=== PATIENT | male | born 1965 | race Caucasian/White ===

== ENCOUNTER 2020-08-05 12:45 | Inpatient (IN) | payer MEDICARE, MEDICAID ==
[~2020-08-05] VITALS: Ht 160 cm; Wt 127.3 kg
--- NOTE | 2020-08-05 13:12 | NUR ---
Dr. Washington at bedside.
--- NOTE | 2020-08-05 13:32 | NUR ---
Lizbet bucio in [facility] - 08/05/20 at 1334 by ERICA sheryl graf in law [phone] emilia luna [phone]
[2020-08-05 13:34] LABS: BASOPHILS % (AUTO) 0.5 % (0-1); EOSINOPHILS % (AUTO) 0 % (0-6); HEMATOCRIT 46.7 % (42.0-52.0); HEMOGLOBIN 15.6 g/dl (14.0-17.9); LYMPHOCYTES # (AUTO) 0.7 X10'3 (1.1-4.8); LYMPHOCYTES % (AUTO) 11.1 % (21-51); MEAN CORPUSCULAR HEMOGLOBIN 35.4 PG (27.0-31.0); MEAN CORPUSCULAR HGB CONC 33.4 g/dL (33.0-36.5); MEAN CORPUSCULAR VOLUME 105.9 FL (78-98); MEAN PLATELET VOLUME 8.6 FL (7.4-10.4); MONOCYTES # (AUTO) 0.5 X10'3 (0-0.9); MONOCYTES % (AUTO) 7.8 % (2-12); NEUTROPHILS % (AUTO) 80.6 % (42-75); PLATELET COUNT 180 X10'3 (140-440); RED BLOOD COUNT 4.41 X10'6 (4.70-6.10); RED CELL DISTRIBUTION WIDTH 15.3 % (11.5-14.5); WHITE BLOOD COUNT 6.2 X10'3 (4.5-11.0)
[2020-08-05] MEDS ORDERED: acetaminophen 325mg rectal suppository RC ONE ×2 (13:45→13:55)
[2020-08-05 13:46] LABS: PARTIAL THROMBOPLASTIN TIME 30 SECONDS (22-32)
[2020-08-05 13:47] LABS: ALANINE AMINOTRANSFERASE 77 U/L (12-78); ALBUMIN 2.9 G/DL (3.4-5.0); ALBUMIN/GLOBULIN RATIO 0.5 (1.1-1.5); ALKALINE PHOSPHATASE 70 IU/L (46-116); ANION GAP 6 (8-16); ASPARTATE AMINO TRANSFERASE 149 U/L (10-37); BILIRUBIN,TOTAL 0.7 MG/DL (0.1-1.0); BLOOD UREA NITROGEN 42 MG/DL (7-18); BUN/CREATININE RATIO 17.6 (5.4-32.0); CALCIUM 8.4 MG/DL (8.5-10.1); CHLORIDE 100 MMOL/L (99-107); CREATININE 2.38 MG/DL (0.60-1.10); GLUCOSE 119 MG/DL (70-104); POTASSIUM 4.4 MMOL/L (3.5-5.1); SODIUM 138 MMOL/L (135-145); TOTAL CARBON DIOXIDE 31.9 MMOL/L (24-32); TOTAL PROTEIN 8.3 G/DL (6.4-8.2); eGFR 29 ML/MIN
[2020-08-05] MEDS ORDERED: normal saline 250ml IV soln 250 ML IV ONE (14:10)
--- NOTE | 2020-08-05 14:11 | NUR ---
Dr. Washington notified of fever of 103.3, AR tylenol ordered and administered
[2020-08-05 15:01] LABS: C-REACTIVE PROTEIN 16.18 MG/DL (0.0-0.5); LACTATE DEHYDROGENASE 642 U/L (85-227)
[2020-08-05] MEDS: ipratropium/albuterol 3ml nebule NEB PRN (15:17)
[2020-08-05] MEDS ORDERED: dexamethasone 4mg tablet PO ONE (15:30)
[2020-08-05 15:36] LABS: ABG BASE EXCESS 1.8 mmol/L (-2.0-2.0); ABG HCO3 27.7 mmol/L (22.0-26.0); ABG OXYGEN SATURATION 95.1 % (94-97); ABG PCO2 (T) 48.5 mmHg (35.0-48.0); ABG PO2 (T) 76.5 mmHg (75.0-100.0); ALLEN'S TEST POSITIVE; FCOHb 0.8 % (0.0-3.9); FLOW 10 L/min; FMetHb 0.2 % (0.0-1.5); FO2Hb 94.1 % (94-97); TOTAL HEMOGLOBIN 14.4 G/dl (14.0-18.0)
--- NOTE | 2020-08-05 15:45 | NUR ---
Pt with ALOC, not following commands well. Dr. Aggarwal aware. Dexamethasone converted to IV per MD order.
[2020-08-05] MEDS ORDERED: dexamethasone sod phosphate 10mg/ml inj IV ONE (15:50)
[2020-08-05] MEDS ORDERED: magnesium hydroxide 30ml (MOM) UD suspension PO PRN (17:00)
[2020-08-05] MEDS ORDERED: metoclopramide 5 mg/ml inj IV PRN (17:00)
[2020-08-05] MEDS ORDERED: mag hydrox/Alum hydrox/simeth 30ml oral suspension PO PRN (17:00)
[2020-08-05] MEDS ORDERED: magnesium 4gm in 100ml NS 100 ML IV PRN (17:00)
[2020-08-05] MEDS ORDERED: magnesium Cl slow-release 64mg tablet PO PRN (17:00)
[2020-08-05] MEDS ORDERED: ondansetron/PF 4mg/2ml inj IV PRN (17:00)
[2020-08-05] MEDS ORDERED: HYDROcodone/acetaminophen 10/325mg tab PO PRN (17:00)
[2020-08-05] MEDS ORDERED: potassium CL 10mEq/100ml bag 100 ML IV PRN ×2 (17:00)
[2020-08-05] MEDS ORDERED: magnesium 2GM in 50ml NS 50 ML IV PRN (17:00)
[2020-08-05] MEDS ORDERED: potassium Cl 20 mEq SR tablet PO PRN ×2 (17:00)
[2020-08-05] MEDS ORDERED: ALBUTEROL INHALER 1 PUFF/90 MCG INHALER IH PRN (17:00)
[2020-08-05] MEDS ORDERED: acetaminophen 325mg tablet PO PRN ×2 (17:00)
[2020-08-05] MEDS ORDERED: bisacodyl 10mg suppository rectal RC PRN (17:00)
[2020-08-05] MEDS ORDERED: HYDROcodone/acetaminophen 5mg/325mg tablet PO PRN (17:00)
[2020-08-05] MEDS ORDERED: ATOR10TA70 PO (17:37)
[2020-08-05] MEDS: normal saline 1000ml 1,000 ML IV SCH (17:56)
[2020-08-05] MEDS: K and/or MAG REPLACEMENT MC SCH (20:09)
[2020-08-05] MEDS ORDERED: temazepam 15mg capsule PO PRN (21:00)
[2020-08-05 23:14] VITALS: BP 108/67
[2020-08-05 23:25] LABS: D-DIMER 1.56 MG/L FEU (0-0.50)
[2020-08-06] MEDS: normal saline 1000ml 1,000 ML IV SCH (04:00)
[2020-08-06 06:00] VITALS: BP 107/66
[2020-08-06 06:57] LABS: D-DIMER 2.12 MG/L FEU (0-0.50)
[2020-08-06 07:06] LABS: BASOPHILS % (AUTO) 0.3 % (0-1); EOSINOPHILS % (AUTO) 0 % (0-6); HEMATOCRIT 44.7 % (42.0-52.0); HEMOGLOBIN 15.1 g/dl (14.0-17.9); LYMPHOCYTES # (AUTO) 0.7 X10'3 (1.1-4.8); LYMPHOCYTES % (AUTO) 7.2 % (21-51); MEAN CORPUSCULAR HEMOGLOBIN 36.4 PG (27.0-31.0); MEAN CORPUSCULAR HGB CONC 33.8 g/dL (33.0-36.5); MEAN CORPUSCULAR VOLUME 107.4 FL (78-98); MEAN PLATELET VOLUME 8.9 FL (7.4-10.4); MONOCYTES # (AUTO) 0.4 X10'3 (0-0.9); MONOCYTES % (AUTO) 3.8 % (2-12); NEUTROPHILS # (AUTO) 8.9 X10'3 (1.8-7.7); NEUTROPHILS % (AUTO) 88.7 % (42-75); PLATELET COUNT 190 X10'3 (140-440); RED BLOOD COUNT 4.16 X10'6 (4.70-6.10); RED CELL DISTRIBUTION WIDTH 15.5 % (11.5-14.5)
[2020-08-06 07:40] LABS: ALANINE AMINOTRANSFERASE 92 U/L (12-78); ALBUMIN 2.6 G/DL (3.4-5.0); ALBUMIN/GLOBULIN RATIO 0.5 (1.1-1.5); ALKALINE PHOSPHATASE 68 IU/L (46-116); ANION GAP 5 (8-16); ASPARTATE AMINO TRANSFERASE 168 U/L (10-37); BILIRUBIN,TOTAL 0.5 MG/DL (0.1-1.0); BLOOD UREA NITROGEN 52 MG/DL (7-18); BUN/CREATININE RATIO 24.3 (5.4-32.0); CALCIUM 8.7 MG/DL (8.5-10.1); CHLORIDE 109 MMOL/L (99-107); CREATININE 2.14 MG/DL (0.60-1.10); FERRITIN 1911 NG/ML (26-388); GLUCOSE 161 MG/DL (70-104); LACTATE DEHYDROGENASE 621 U/L (85-227); MAGNESIUM 3.1 MG/DL (1.5-2.4); POTASSIUM 5.4 MMOL/L (3.5-5.1); SODIUM 146 MMOL/L (135-145); TOTAL PROTEIN 7.9 G/DL (6.4-8.2); eGFR 32 ML/MIN
[2020-08-06] MEDS: K and/or MAG REPLACEMENT MC SCH ×2 (08:00→20:00)
[2020-08-06 09:04] LABS: NUCLEATED RED BLOOD CELLS 3 /100WBC (0-0); TOTAL CELLS COUNTED 100
[2020-08-06 09:10] LABS: ACANTHOCYTES FEW; PLATELET ESTIMATE NORMAL; POLYCHROMASIA 1+; SPHEROCYTES FEW; STOMATOCYTES FEW; TEAR DROP CELLS FEW
[2020-08-06] MEDS: enoxaparin 40mg/0.4ml syringe SUBCUT SCH (09:45)
[2020-08-06] MEDS: dexamethasone sod phosphate 10mg/ml inj IV SCH (09:45)
[2020-08-06] MEDS: dextrose 5%-water 1,000 ML IV SCH ×2 (09:45→19:29)
[2020-08-06] MEDS: atorvastatin 10mg tablet PO SCH (09:45)
[2020-08-06 10:00] VITALS: BP 102/70
--- NOTE | 2020-08-06 10:19 | NUR ---
PAGER ID: [phone] MESSAGE: Savana Vidal9 re [id number] Pancho Maxwell- he is on 10 L non rebreather 90-94. can we please place on tele w 02 monitor? We are not able to monitor him very closely due to iso Addendum: 08/06/20 at 1019 by Jyoti Yost RN Callback from Dr suggs to ma tele placement
--- NOTE | 2020-08-06 11:27 | NUR ---
Malnutrition consult "poor appetite r/t being sick": Pt admit DX COVID-19 PNA, acute respiratory failure w/ hypoxia, and RENETTA vs CKD. Hx severe down syndrome requiring assistance for all activities and mostly non-verbal per EMR. Receiving assistance at meals; chopped meats added. PO meals pending at this time. Pt has no edema, general severe weakness though unsure if this is baseline given hx, and pending scaled wt this admit w/ no prior wt hx. Reported wt BMI 50 though will monitor for updated wt this admit. LBM 08/06 w/ diarrhea noted [employer] likely r/t illness. Pt does not meet minimum malnutrition criteria at this time. Will monitor for additional malnutrition criteria this admit in addition to texture modifications as required given hx. To f/u 08/10 for initial assessment. Addendum: 08/06/20 at [address] Amended: Links added.
--- NOTE | 2020-08-06 12:45 | NUR ---
MADE DR. REBOLLEDO AWARE OF PATIENT'S DESATURATION TO 85% ON 15 L NRB, LABORED BREATHING,RESPIRS 25, WISHES TO CONSULT R.T, THEY HAVE BEEN PAGED, WAITING ON ARRIVAL. WILL CONT. TO MONITOR.
[2020-08-06] MEDS: CefTRIAXone/D5W-Rocephin 1gm 50 ML IV SCH (17:15)
[2020-08-06] MEDS: azithromycin/NS 500mg/250ml 250 ML IV SCH (17:50)
[2020-08-06 18:00] VITALS: BP 107/59
--- NOTE | 2020-08-06 18:27 | NUR ---
Gave report to December RN, transferred care.
[2020-08-06 22:00] VITALS: BP 111/66
[2020-08-07 02:53] LABS: D-DIMER 1.15 MG/L FEU (0-0.50)
[2020-08-07 03:04] LABS: BASOPHILS % (AUTO) 0.3 % (0-1); EOSINOPHILS % (AUTO) 0 % (0-6); HEMATOCRIT 42.3 % (42.0-52.0); HEMOGLOBIN 13.9 g/dl (14.0-17.9); LYMPHOCYTES # (AUTO) 0.7 X10'3 (1.1-4.8); LYMPHOCYTES % (AUTO) 6.5 % (21-51); MEAN CORPUSCULAR HEMOGLOBIN 35.1 PG (27.0-31.0); MEAN CORPUSCULAR HGB CONC 32.8 g/dL (33.0-36.5); MEAN PLATELET VOLUME 8.6 FL (7.4-10.4); MONOCYTES # (AUTO) 0.5 X10'3 (0-0.9); MONOCYTES % (AUTO) 4.7 % (2-12); NEUTROPHILS # (AUTO) 9.7 X10'3 (1.8-7.7); NEUTROPHILS % (AUTO) 88.5 % (42-75); PLATELET COUNT 196 X10'3 (140-440); RED BLOOD COUNT 3.95 X10'6 (4.70-6.10); RED CELL DISTRIBUTION WIDTH 15.4 % (11.5-14.5)
[2020-08-07 03:29] LABS: ALANINE AMINOTRANSFERASE 82 U/L (12-78); ALBUMIN 2.5 G/DL (3.4-5.0); ALBUMIN/GLOBULIN RATIO 0.5 (1.1-1.5); ALKALINE PHOSPHATASE 68 IU/L (46-116); ANION GAP 5 (8-16); ASPARTATE AMINO TRANSFERASE 130 U/L (10-37); BILIRUBIN,TOTAL 0.4 MG/DL (0.1-1.0); BLOOD UREA NITROGEN 49 MG/DL (7-18); BUN/CREATININE RATIO 26.2 (5.4-32.0); C-REACTIVE PROTEIN 8.54 MG/DL (0.0-0.5); CHLORIDE 103 MMOL/L (99-107); CREATININE 1.87 MG/DL (0.60-1.10); FERRITIN 2003 NG/ML (26-388); GLUCOSE 177 MG/DL (70-104); LACTATE DEHYDROGENASE 590 U/L (85-227); MAGNESIUM 2.9 MG/DL (1.5-2.4); POTASSIUM 4.4 MMOL/L (3.5-5.1); SODIUM 139 MMOL/L (135-145); TOTAL CARBON DIOXIDE 31.5 MMOL/L (24-32); TOTAL PROTEIN 7.5 G/DL (6.4-8.2); eGFR 38 ML/MIN
[2020-08-07 05:00] VITALS: BP 153/75
[2020-08-07 06:00] VITALS: BP 85/52
[2020-08-07] MEDS: K and/or MAG REPLACEMENT MC SCH ×2 (08:00→20:00)
[2020-08-07] MEDS: dextrose 5%-water 1,000 ML IV SCH ×2 (09:30→16:12)
[2020-08-07] MEDS: dexamethasone sod phosphate 10mg/ml inj IV SCH (09:44)
[2020-08-07] MEDS: azithromycin/NS 500mg/250ml 250 ML IV SCH (09:47)
[2020-08-07] MEDS: CefTRIAXone/D5W-Rocephin 1gm 50 ML IV SCH (09:47)
[2020-08-07] MEDS: enoxaparin 40mg/0.4ml syringe SUBCUT SCH (09:48)
[2020-08-07] MEDS: atorvastatin 10mg tablet PO SCH ×2 (09:49→10:25)
[2020-08-07 10:00] VITALS: BP 95/43
[2020-08-07 10:45] LABS: PLATELET ESTIMATE NORMAL; SMUDGE CELLS 1+; TOTAL CELLS COUNTED 100
[2020-08-07 10:46] LABS: LARGE PLATELETS FEW; POLYCHROMASIA FEW
--- NOTE | 2020-08-07 12:30 | NUR ---
unable to assess visual field of pt. Addendum: 08/07/20 at 1246 by Mer Hall RN Amended: Links added.
--- NOTE | 2020-08-07 18:57 | NUR ---
Problems reprioritized. Patient report given, questions answered & plan of care reviewed with Henrietta.
--- NOTE | 2020-08-07 18:58 | NUR ---
Patient in room ORTHO 4018. I have received report from December and had the opportunity to ask questions and assume patient care.
[2020-08-07] MEDS: lactobacillus rhamnosus 10,000 MMU CELLS/CAPSULE PO SCH (20:00)
[2020-08-07 22:00] VITALS: BP 118/56
[2020-08-08] MEDS: dextrose 5%-water 1,000 ML IV SCH ×2 (01:35→14:49)
[2020-08-08 06:00] VITALS: BP 117/60
--- NOTE | 2020-08-08 06:22 | NUR ---
REPORT GIVEN TO FABIAN ALMEIDA
[2020-08-08] MEDS: CefTRIAXone/D5W-Rocephin 1gm 50 ML IV SCH (07:00)
[2020-08-08] MEDS: dexamethasone sod phosphate 10mg/ml inj IV SCH (07:00)
[2020-08-08 07:23] LABS: BASOPHILS % (AUTO) 0.2 % (0-1); EOSINOPHILS % (AUTO) 0 % (0-6); HEMATOCRIT 43.2 % (42.0-52.0); HEMOGLOBIN 14.4 g/dl (14.0-17.9); LYMPHOCYTES # (AUTO) 1.2 X10'3 (1.1-4.8); MEAN CORPUSCULAR HEMOGLOBIN 35.6 PG (27.0-31.0); MEAN CORPUSCULAR HGB CONC 33.2 g/dL (33.0-36.5); MEAN CORPUSCULAR VOLUME 107.2 FL (78-98); MONOCYTES # (AUTO) 0.7 X10'3 (0-0.9); MONOCYTES % (AUTO) 4.4 % (2-12); NEUTROPHILS # (AUTO) 13.4 X10'3 (1.8-7.7); NEUTROPHILS % (AUTO) 87.4 % (42-75); PLATELET COUNT 196 X10'3 (140-440); RED BLOOD COUNT 4.04 X10'6 (4.70-6.10); RED CELL DISTRIBUTION WIDTH 15.4 % (11.5-14.5); WHITE BLOOD COUNT 15.3 X10'3 (4.5-11.0)
[2020-08-08 07:31] LABS: D-DIMER 1.09 MG/L FEU (0-0.50)
[2020-08-08 07:47] LABS: PLATELET ESTIMATE NORMAL; TOTAL CELLS COUNTED 100
[2020-08-08] MEDS: lactobacillus rhamnosus 10,000 MMU CELLS/CAPSULE PO SCH ×2 (08:00→20:00)
[2020-08-08] MEDS: K and/or MAG REPLACEMENT MC SCH ×2 (08:00→20:00)
[2020-08-08 08:29] LABS: ALANINE AMINOTRANSFERASE 70 U/L (12-78); ALBUMIN 2.6 G/DL (3.4-5.0); ALBUMIN/GLOBULIN RATIO 0.5 (1.1-1.5); ALKALINE PHOSPHATASE 68 IU/L (46-116); ANION GAP 9 (8-16); ASPARTATE AMINO TRANSFERASE 105 U/L (10-37); BILIRUBIN,TOTAL 0.5 MG/DL (0.1-1.0); BLOOD UREA NITROGEN 30 MG/DL (7-18); BUN/CREATININE RATIO 22.4 (5.4-32.0); C-REACTIVE PROTEIN 6.04 MG/DL (0.0-0.5); CALCIUM 8.6 MG/DL (8.5-10.1); CHLORIDE 108 MMOL/L (99-107); CREATININE 1.34 MG/DL (0.60-1.10); GLUCOSE 132 MG/DL (70-104); LACTATE DEHYDROGENASE 681 U/L (85-227); MAGNESIUM 2.6 MG/DL (1.5-2.4); POTASSIUM 4.3 MMOL/L (3.5-5.1); SODIUM 149 MMOL/L (135-145); TOTAL CARBON DIOXIDE 32.1 MMOL/L (24-32); TOTAL PROTEIN 7.8 G/DL (6.4-8.2); eGFR 56 ML/MIN
[2020-08-08 08:30] LABS: FERRITIN 1608 NG/ML (26-388)
--- NOTE | 2020-08-08 09:10 | NUR ---
PAGER ID: [phone] MESSAGE: RE: [phone]. Pt keeps taking tele monitor and O2 probe off. [place] [phone]
[2020-08-08 10:00] VITALS: BP 88/69
[2020-08-08] MEDS: enoxaparin 40mg/0.4ml syringe SUBCUT SCH (10:12)
[2020-08-08] MEDS: azithromycin/NS 500mg/250ml 250 ML IV SCH (14:50)
[2020-08-08 18:02] VITALS: BP 130/73
--- NOTE | 2020-08-08 18:30 | NUR ---
Problems reprioritized. Patient report given, questions answered & plan of care reviewed with Kelli ALMEIDA.
--- NOTE | 2020-08-08 23:00 | NUR ---
pt moaning, taking off cpap, not leaving NRB mask on. noted increased HR, wheezing - called RT for a prn treatment. gave oral care as much as patient allowed. usually just lip gloss. mom states pt likes ice cream but pt barely able to open eyes he is so fatigued. not a safe time to try swallow. took over 60 minutes to get patient calmed down and sats up to 91%
[2020-08-08 23:37] VITALS: BP 149/89
[2020-08-08] MEDS: ipratropium/albuterol 3ml nebule NEB PRN (23:37)
--- NOTE | 2020-08-09 00:11 | NUR ---
paged Dr. Alston for orders. no response at 2330. 2nd call at 0010. -trang [phone] - pt Pancho Maxwell need IV pain meds plz. pt is Down Syndrome and won't take oral meds. moaning in pain, increase resps and wheezing. RT doing albuterol now. NKDA
[2020-08-09] MEDS ORDERED: morphine 2 MG/ML inj. syringe IV ONE (00:15)
[2020-08-09] MEDS ORDERED: acetaminophen 325mg rectal suppository RC ONE (00:15)
--- NOTE | 2020-08-09 01:00 | NUR ---
pt resting after incon of urine. still nonverbal but groans and cries out usually when he has to void. unable to void in urinal.
[2020-08-09] MEDS: dextrose 5%-water 1,000 ML IV SCH ×4 (03:08→21:34)
--- NOTE | 2020-08-09 05:32 | NUR ---
incont urine. took off cpap. sats immediately dropped to 70%. tele called to notify of low sats. put bipap back on patient.
--- NOTE | 2020-08-09 05:59 | NUR ---
reported to days. noted pt anxious, not eating or drinking, and encouraged day RN to have him talk to mom on phone if possible.
[2020-08-09 06:57] LABS: BASOPHILS % (AUTO) 0.1 % (0-1); EOSINOPHILS % (AUTO) 0.1 % (0-6); HEMATOCRIT 39.8 % (42.0-52.0); HEMOGLOBIN 13.3 g/dl (14.0-17.9); LYMPHOCYTES # (AUTO) 0.4 X10'3 (1.1-4.8); MEAN CORPUSCULAR HEMOGLOBIN 35.3 PG (27.0-31.0); MEAN CORPUSCULAR HGB CONC 33.3 g/dL (33.0-36.5); MEAN CORPUSCULAR VOLUME 105.9 FL (78-98); MEAN PLATELET VOLUME 8.7 FL (7.4-10.4); MONOCYTES # (AUTO) 0.5 X10'3 (0-0.9); MONOCYTES % (AUTO) 5.8 % (2-12); PLATELET COUNT 166 X10'3 (140-440); RED BLOOD COUNT 3.76 X10'6 (4.70-6.10); RED CELL DISTRIBUTION WIDTH 15.1 % (11.5-14.5); WHITE BLOOD COUNT 8.9 X10'3 (4.5-11.0)
[2020-08-09 07:10] LABS: D-DIMER 1.18 MG/L FEU (0-0.50)
[2020-08-09 07:46] LABS: NUCLEATED RED BLOOD CELLS 1 /100WBC (0-0); PLATELET ESTIMATE NORMAL; TOTAL CELLS COUNTED 100
[2020-08-09 07:47] LABS: POLYCHROMASIA FEW
[2020-08-09] MEDS: CefTRIAXone/D5W-Rocephin 1gm 50 ML IV SCH (07:58)
[2020-08-09] MEDS: dexamethasone 4mg/ml inj IV SCH (07:59)
[2020-08-09] MEDS: K and/or MAG REPLACEMENT MC SCH ×2 (08:00→20:00)
[2020-08-09] MEDS: azithromycin/NS 500mg/250ml 250 ML IV SCH (08:00)
[2020-08-09 08:09] LABS: ALANINE AMINOTRANSFERASE 60 U/L (12-78); ALBUMIN 2.2 G/DL (3.4-5.0); ALBUMIN/GLOBULIN RATIO 0.5 (1.1-1.5); ALKALINE PHOSPHATASE 54 IU/L (46-116); ANION GAP 6 (8-16); ASPARTATE AMINO TRANSFERASE 86 U/L (10-37); BILIRUBIN,TOTAL 0.4 MG/DL (0.1-1.0); BLOOD UREA NITROGEN 25 MG/DL (7-18); BUN/CREATININE RATIO 22.1 (5.4-32.0); C-REACTIVE PROTEIN 8.84 MG/DL (0.0-0.5); CALCIUM 8.6 MG/DL (8.5-10.1); CHLORIDE 107 MMOL/L (99-107); CREATININE 1.13 MG/DL (0.60-1.10); GLUCOSE 156 MG/DL (70-104); LACTATE DEHYDROGENASE 650 U/L (85-227); MAGNESIUM 2.5 MG/DL (1.5-2.4); POTASSIUM 4.2 MMOL/L (3.5-5.1); SODIUM 147 MMOL/L (135-145); TOTAL CARBON DIOXIDE 34.2 MMOL/L (24-32); TOTAL PROTEIN 6.8 G/DL (6.4-8.2); eGFR 68 ML/MIN
[2020-08-09] MEDS: enoxaparin 40mg/0.4ml syringe SUBCUT SCH (08:11)
[2020-08-09] MEDS: atorvastatin 10mg tablet PO SCH (08:12)
[2020-08-09] MEDS: lactobacillus rhamnosus 10,000 MMU CELLS/CAPSULE PO SCH ×2 (08:12→21:29)
[2020-08-09 09:03] LABS: FERRITIN 1333 NG/ML (26-388)
[2020-08-09 09:08] VITALS: BP 130/73
[2020-08-09] MEDS ORDERED: azithromycin/NS 500mg/250ml 250 ML IV ONE (13:15)
--- NOTE | 2020-08-09 14:39 | NUR ---
F/u: MANI d/w RN regarding poor PO hx; pt currently refusing all meals and most meds per RN. Previously in same room as patient's mother since both have COVID-19 but had to separate given increased respiratory support requirements per RN. RN reports separation from mother also impacting pt affect given severe down's syndrome hx requiring maximum assistance. MANI TC w/ pt mother currently in [facility] in [address] regarding pt food preferences; mother reports pt enjoys carbonated beverages, jellos, puddings, and sandwiches. Will trial sandwich, chips, jello, pudding, and soda for dinner tonight. Carbonated beverages to be sent T[facility]; dietary aware. Addendum: 08/09/20 at [address] Amended: Links added.
[2020-08-09 17:10] VITALS: BP 145/75
--- NOTE | 2020-08-09 18:30 | NUR ---
Problems reprioritized. Patient report given, questions answered & plan of care reviewed with Lavonne ALMEIDA.
--- NOTE | 2020-08-09 18:30 | NUR ---
Patient in room ORTHO 4018. I have received report from Rowan ALMEIDA and had the opportunity to ask questions and assume patient care.
[2020-08-09 22:00] VITALS: BP 122/78
[2020-08-10] MEDS: ipratropium/albuterol 3ml nebule NEB PRN (03:04)
[2020-08-10 05:00] VITALS: BP 131/71
--- NOTE | 2020-08-10 06:20 | NUR ---
Patient in room ORTHO 4018. I have received report from Lavonne and had the opportunity to ask questions and assume patient care.
--- NOTE | 2020-08-10 06:30 | NUR ---
Problems reprioritized. Patient report given, questions answered & plan of care reviewed with Madai ALMEIDA.
[2020-08-10 06:41] LABS: BASOPHILS % (AUTO) 0.2 % (0-1); EOSINOPHILS % (AUTO) 0 % (0-6); HEMATOCRIT 40.1 % (42.0-52.0); HEMOGLOBIN 13.6 g/dl (14.0-17.9); LYMPHOCYTES # (AUTO) 0.4 X10'3 (1.1-4.8); LYMPHOCYTES % (AUTO) 4.6 % (21-51); MEAN CORPUSCULAR HEMOGLOBIN 35.4 PG (27.0-31.0); MEAN CORPUSCULAR HGB CONC 33.8 g/dL (33.0-36.5); MEAN CORPUSCULAR VOLUME 104.8 FL (78-98); MEAN PLATELET VOLUME 9.2 FL (7.4-10.4); MONOCYTES # (AUTO) 0.6 X10'3 (0-0.9); NEUTROPHILS # (AUTO) 8.1 X10'3 (1.8-7.7); NEUTROPHILS % (AUTO) 88.2 % (42-75); PLATELET COUNT 193 X10'3 (140-440); RED BLOOD COUNT 3.83 X10'6 (4.70-6.10); RED CELL DISTRIBUTION WIDTH 14.9 % (11.5-14.5); WHITE BLOOD COUNT 9.2 X10'3 (4.5-11.0)
[2020-08-10 06:54] LABS: D-DIMER 1.99 MG/L FEU (0-0.50)
[2020-08-10 07:45] LABS: ALANINE AMINOTRANSFERASE 66 U/L (12-78); ALBUMIN 2.2 G/DL (3.4-5.0); ALBUMIN/GLOBULIN RATIO 0.5 (1.1-1.5); ALKALINE PHOSPHATASE 60 IU/L (46-116); ANION GAP 5 (8-16); ASPARTATE AMINO TRANSFERASE 81 U/L (10-37); BILIRUBIN,TOTAL 0.5 MG/DL (0.1-1.0); BLOOD UREA NITROGEN 19 MG/DL (7-18); BUN/CREATININE RATIO 17.8 (5.4-32.0); C-REACTIVE PROTEIN 6.79 MG/DL (0.0-0.5); CALCIUM 8.6 MG/DL (8.5-10.1); CHLORIDE 104 MMOL/L (99-107); CREATININE 1.07 MG/DL (0.60-1.10); GLUCOSE 152 MG/DL (70-104); LACTATE DEHYDROGENASE 672 U/L (85-227); MAGNESIUM 2.2 MG/DL (1.5-2.4); POTASSIUM 3.9 MMOL/L (3.5-5.1); SODIUM 145 MMOL/L (135-145); TOTAL CARBON DIOXIDE 36.4 MMOL/L (24-32); eGFR 72 ML/MIN
[2020-08-10 07:47] LABS: FERRITIN 1395 NG/ML (26-388)
[2020-08-10] MEDS: lactobacillus rhamnosus 10,000 MMU CELLS/CAPSULE PO SCH (08:00)
[2020-08-10] MEDS: atorvastatin 10mg tablet PO SCH (08:00)
[2020-08-10] MEDS ORDERED: azithromycin 250mg tablet PO SCH (08:00)
[2020-08-10] MEDS: K and/or MAG REPLACEMENT MC SCH (08:00)
[2020-08-10 08:05] LABS: PLATELET ESTIMATE NORMAL; POLYCHROMASIA FEW; TOTAL CELLS COUNTED 100
[2020-08-10] MEDS: dexamethasone 4mg/ml inj IV SCH (08:51)
[2020-08-10] MEDS: CefTRIAXone/D5W-Rocephin 1gm 50 ML IV SCH (08:51)
[2020-08-10] MEDS: enoxaparin 40mg/0.4ml syringe SUBCUT SCH (08:52)
[2020-08-10 11:00] VITALS: BP 140/68
--- NOTE | 2020-08-10 15:46 | NUR ---
Pt now comfort care, will follow per policy. Addendum: 08/10/20 at [address] Amended: Links added.
--- NOTE | 2020-08-10 16:35 | NUR ---
PAGER ID: [phone] MESSAGE: Madai Cunningham on ortho, please call regarding Mr. Ramirez in [phone], thank you
[2020-08-10] MEDS: morphine 4 MG/ML inj SYRINge IV PRN ×2 (17:00→21:42)
[2020-08-10 18:30] VITALS: BP 128/67
--- NOTE | 2020-08-10 18:31 | NUR ---
Problems reprioritized. Patient report given, questions answered & plan of care reviewed with Lavonne.
--- NOTE | 2020-08-10 18:40 | NUR ---
Patient in room ORTHO 4018. I have received report from Madai ALMEIDA and had the opportunity to ask questions and assume patient care.
[2020-08-10] MEDS: LORazepam 2 mg/ml vial IV PRN (20:09)
[2020-08-11 00:30] VITALS: BP 97/61
[2020-08-11] MEDS: LORazepam 2 mg/ml vial IV PRN ×2 (00:31→09:35)
[2020-08-11] MEDS: morphine 4 MG/ML inj SYRINge IV PRN ×5 (02:40→22:02)
--- NOTE | 2020-08-11 06:05 | NUR ---
Patient in room ORTHO 4018. I have received report from Lavonne and had the opportunity to ask questions and assume patient care.
--- NOTE | 2020-08-11 06:13 | NUR ---
Problems reprioritized. Patient report given, questions answered & plan of care reviewed with Madai ALMEIDA.
[2020-08-11 09:00] VITALS: BP 107/64
[2020-08-11] MEDS: morphine 10mg/0.5ml (conc. morphine) oral syringe PO PRN ×3 (11:06→19:50)
--- NOTE | 2020-08-11 18:10 | NUR ---
Problems reprioritized. Patient report given, questions answered & plan of care reviewed with Lizzette Price
[2020-08-11] MEDS ORDERED: NYSTATIN CREAM - 30GM TUBE TP SCH (20:00)
--- NOTE | 2020-08-12 01:30 | NUR ---
RN IS TO DOCUMENT YES TO ALL APPLICABLE AREAS Pronouncement of : 1. Time Physician Notified: 124 2. Date of :08/12/20 3. Time of : 116 4. DNR/Withdraw life support documented:Y 5. Monitor strip has been placed on chart:Y 6. Assessment process is of one-minute duration and includes following criteria: a) Patient is unresponsive to all stimuli: Y b) Pupils fixed and non-reactive:Y c) Auscultation of precordium reveals absence of heart tones:Y d) Auscultation of lungs reveals absence of breath sounds:Y e) Absence of blood pressure / all vital signs:no VS present f) QRS complexes are not present on monitor / EKG strip:Y g) Pacer spikes without capture:NA 4. Comments:pupils fixed and dilated, no VS noted, no heart sounds or respirations noted. EKG strip printed and placed in chart. notified. Mother notified. mortuary and donor network notified.
== END 2020-08-12 03:14 | disposition expired | DRG 177 ==
LOC: ER 12:45 → ED HOLD 16:59 → ORTHO 4S 22:40
PROVIDERS: ADMIT Family Medicine; ATTEND Family Medicine
PROC: 5A09357 Assistance with Respiratory Ventilation, Less than 24 Consecutive Hours, Continuous Positive Airway Pressure (ICD-10-PCS; principal; 2020-08-07)
PROC: 5A09357 Assistance with Respiratory Ventilation, Less than 24 Consecutive Hours, Continuous Positive Airway Pressure (ICD-10-PCS; 2020-08-08)
PROC: 5A09357 Assistance with Respiratory Ventilation, Less than 24 Consecutive Hours, Continuous Positive Airway Pressure (ICD-10-PCS; 2020-08-09)
PROC: 5A09357 Assistance with Respiratory Ventilation, Less than 24 Consecutive Hours, Continuous Positive Airway Pressure (ICD-10-PCS; 2020-08-10)
DX: U07.1 COVID-19 (principal); J96.01 Acute respiratory failure with hypoxia; J12.89 Other viral pneumonia; E87.0 Hyperosmolality and hypernatremia; N17.9 Acute kidney failure, unspecified; Z68.42 Body mass index [BMI] 45.0-49.9, adult; Q90.9 Down syndrome, unspecified; Z66 Do not resuscitate; E78.5 Hyperlipidemia, unspecified; E78.00 Pure hypercholesterolemia, unspecified; E66.9 Obesity, unspecified; G47.33 Obstructive sleep apnea (adult) (pediatric); E87.5 Hyperkalemia; I46.9 Cardiac arrest, cause unspecified
CPT/HCPCS: 36415; 36600; 71045; 76937; 80053; 82728; 82803; 83605; 83615; 83735; 84145; 85007; 85018; 85025; 85379; 85610; 85730; 86140; 87040; 87081; 87635; 92508; 92616; 93005; 94640; 94660; 94760; 96374; 99291; C9803; G0378; J0456; J0696; J1100; J1650; J2060; J2270; J7030; J7050; J7070